=== PATIENT | female | born 1950 | race Two or more races ===

== ENCOUNTER 2019-03-18 15:22 | Outpatient (CLI) | payer MEDICARE, BC | END 2019-03-18 23:59 | disposition home or self-care (01) | LOC: RAD 15:22 | PROVIDERS: ATTEND Podiatrist Foot & Ankle Surgery | DX: M77.32 Calcaneal spur, left foot (principal); M19.031 Primary osteoarthritis, right wrist; M20.21 Hallux rigidus, right foot | CPT/HCPCS: 73630-TC ==